=== PATIENT | male | born 1975 | race Hispanic/Latino ===

== ENCOUNTER 2016-10-17 14:48 | Outpatient (CLI) | payer BC | END 2016-10-17 14:49 | disposition home or self-care (01) | LOC: NAVSJIPCSP 14:48 | PROVIDERS: ATTEND Internal Medicine | DX: Z00.00 Encounter for general adult medical examination without abnormal findings (principal) | CPT/HCPCS: 82270 ==

== ENCOUNTER 2018-08-05 08:58 | Outpatient (CLI) | payer BC ==
--- NOTE | 2018-08-05 11:54 | ULT ---
ULTRASOUND ABDOMEN LIMITED: (RIGHT UPPER QUADRANT) HISTORY: 43-year-old male with postprandial nausea and generalized abdominal pain. FINDINGS: The gallbladder has normal wall thickness and has no evidence of gallstones or sludge. The hepatic e chogenicity is normal. The right kidney has normal echogenicity and has no hydronephrosis. The panc reas is obscured by shadowing from bowel gas. There is no biliary dilation. The common duct caliber is 3 mm. IMPRESSION: 1. No pathology identified. 2. Pancreas not visualized. jn [] POS: [facility]
== END 2018-08-05 08:59 | disposition home or self-care (01) ==
LOC: NAV ULT 08:58
PROVIDERS: ATTEND Internal Medicine
DX: R10.11 Right upper quadrant pain (principal); R11.0 Nausea
CPT/HCPCS: 76705

== ENCOUNTER 2019-07-23 10:41 | Outpatient (CLI) | payer BC ==
--- NOTE | 2019-07-23 13:07 | ULT ---
BILATERAL CAROTID DUPLEX ULTRASOUND: HISTORY: Right arm numbness TECHNIQUE: Grayscale, color-flow and spectral Doppler ultrasound imaging of the extracranial carotid artery syst ems was performed bilaterally. FINDINGS: A small amount of plaque formation is seen, left greater than right. The peak systolic velocity in the right ICA measures 74 cm/s with an end-diastolic velocity of 32 cm/ s and a systolic ratio of 0.8. The peak systolic velocity in the left ICA measures 119 cm/s with an end-diastolic velocity of 50 cm/s and a systolic ratio of 1.. Flow in both vertebral arteries remains antegrade. IMPRESSION: No evidence of hemodynamically significant stenosis.
== END 2019-07-23 10:42 | disposition home or self-care (01) ==
LOC: NAV ULT 10:41
PROVIDERS: ATTEND Internal Medicine
DX: R20.0 Anesthesia of skin (principal); I08.9 Rheumatic multiple valve disease, unspecified
CPT/HCPCS: 93306; 93880